=== PATIENT | female | born 1935 | race Caucasian/White ===

== ENCOUNTER 2020-10-16 18:12 | Emergency (ER) | payer MEDICAID, OTHER ==
[~2020-10-16] VITALS: Ht 162.6 cm; Wt 57.0 kg
[~2020-10-16 18:12] MED LIST: CALC-26 PO; GLIP5TAB3; HYDR25TA; MELO-104 PO; METF-416 PO; METF25CR; METO-539 PO; METO25TA6; OMEP20TA2; PROM25TA13; SIMV-43 PO
[2020-10-16] MEDS ORDERED: MAGNESIUM/ALUMINUM HYDROXIDE/SIMETHICONE 30ML UDC PO STA (18:34)
[2020-10-16] MEDS ORDERED: VISCOUS LIDOCAINE 2% 15 ML UDC PO STA (18:34)
[2020-10-16] MEDS ORDERED: ACETAMINOPHEN 325MG TABLET PO ONE (18:45)
[2020-10-16 19:11] LABS: CHLORIDE 103 mEq/L (98-107)
[2020-10-16 19:17] LABS: BASOPHILS % 0.7 % (0.0-2.0); EOSINOPHILS % 1.7 % (0.0-5.0); HEMATOCRIT. 34.4 % (36.0-48.0); HEMOGLOBIN. 11.6 g/dL (12.0-16.0); LYMPHOCYTES % 25.5 % (20.0-50.0); MEAN CORPUSCULAR HEMOGLOBIN 31.1 pg (28.0-32.0); MEAN PLATELET VOLUME 8.5 fl (7.4-10.4); MONOCYTES % 10.9 % (2.0-8.0); NEUTROPHILS % 61.2 % (40.0-76.0); PLATELET 104 x1000/uL (130-400); RED BLOOD CELL COUNT 3.74 mill/uL (4.2-5.4); RED CELL DISTRIBUTION WIDTH 13.4 % (11.6-14.6)
[2020-10-16 19:19] LABS: INR 1.1; PARTIAL THROMBOPLASTIN TIME 26.7 sec (23.4-31.0); PROTHROMBIN TIME 12.2 sec (9.6-11.0)
[2020-10-16 20:51] LABS: CLARITY URINE CLEAR (CLEAR); COLOR URINE YELLOW (YELLOW); KETONES URINE NEGATIVE (NEGATIVE); LEUKOCYTE ESTERASE URINE 2+ (NEGATIVE); NITRITE URINE NEGATIVE (NEGATIVE); OCCULT BLOOD URINE NEGATIVE (NEGATIVE); PH URINE 6.5 (4.5-8.0); PROTEIN URINE NEGATIVE (NEGATIVE); SPECIFIC GRAVITY URINE 1.012 (1.005-1.030)
[2020-10-16] MEDS ORDERED: CEPH250C2 MT (22:40)
[2020-10-16] MEDS ORDERED: TOPUD MT (22:40)
[2020-10-16] MEDS ORDERED: CEPHALEXIN 250MG CAPSULE PO ONE (22:45)
[2020-10-17 00:02] VITALS: BP 125/80
== END 2020-10-17 00:04 | disposition home or self-care (01) ==
LOC: ER 18:12
DX: N39.0 Urinary tract infection, site not specified (principal); R25.2 Cramp and spasm; I48.91 Unspecified atrial fibrillation; E11.9 Type 2 diabetes mellitus without complications; I11.9 Hypertensive heart disease without heart failure; Z95.0 Presence of cardiac pacemaker; Z90.49 Acquired absence of other specified parts of digestive tract
CPT/HCPCS: 36415; 71045; 80053; 81003; 83880; 84484; 85025; 93005; 93970; 99285

== ENCOUNTER 2021-02-03 12:25 | Emergency (ER) | payer MEDICAID ==
[~2021-02-03] VITALS: Ht 165.1 cm; Wt 77.0 kg
[~2021-02-03 12:25] MED LIST changes: +CEPH250C2 MT; +TOPUD MT
[2021-02-03] MEDS ORDERED: ACETAMINOPHEN 325MG TABLET PO ONE (14:15)
[2021-02-03] MEDS ORDERED: IBUPROFEN 400MG TABLET PO ONE (14:15)
[2021-02-03 15:18] LABS: BASOPHILS % 0.7 % (0.0-2.0); EOSINOPHILS % 0.9 % (0.0-5.0); HEMATOCRIT. 33.4 % (36.0-48.0); HEMOGLOBIN. 11.5 g/dL (12.0-16.0); LYMPHOCYTES % 21.1 % (20.0-50.0); MEAN CORPUSCULAR HEMOGLOBIN 31.2 pg (28.0-32.0); MEAN CORPUSCULAR VOLUME 90.7 fL (81.0-99.0); MEAN PLATELET VOLUME 8.3 fl (7.4-10.4); MONOCYTES % 11.3 % (2.0-8.0); PLATELET 104 x1000/uL (130-400); RED BLOOD CELL COUNT 3.68 mill/uL (4.2-5.4); RED CELL DISTRIBUTION WIDTH 13.7 % (11.6-14.6)
[2021-02-03 15:23] LABS: CHLORIDE 103 mEq/L (98-107)
[2021-02-03 16:35] LABS: CLARITY URINE CLEAR (CLEAR); COLOR URINE YELLOW (YELLOW); KETONES URINE NEGATIVE (NEGATIVE); LEUKOCYTE ESTERASE URINE NEGATIVE (NEGATIVE); NITRITE URINE NEGATIVE (NEGATIVE); OCCULT BLOOD URINE NEGATIVE (NEGATIVE); PH URINE 5.5 (4.5-8.0); PROTEIN URINE NEGATIVE (NEGATIVE); SPECIFIC GRAVITY URINE 1.011 (1.005-1.030)
[2021-02-03] MEDS ORDERED: IBUP-2029 MT (17:39)
[2021-02-03 18:04] VITALS: BP 132/51
== END 2021-02-03 18:06 | disposition home or self-care (01) ==
LOC: ER 12:25
DX: S20.211A Contusion of right front wall of thorax, initial encounter (principal); R07.89 Other chest pain; E11.9 Type 2 diabetes mellitus without complications; I10 Essential (primary) hypertension; W01.0XXA Fall on same level from slipping, tripping and stumbling without subsequent striking against object, initial encounter; Y93.9 Activity, unspecified; Y92.9 Unspecified place or not applicable
CPT/HCPCS: 36415; 71250; 80048; 81003; 84484; 85025; 93005; 99285

== ENCOUNTER 2021-06-13 11:44 | Inpatient (IN) | payer MEDICAID ==
[~2021-06-13] VITALS: Ht 165.1 cm; Wt 70.9 kg
[~2021-06-13 11:44] MED LIST changes: +IBUP-2029 MT
[2021-06-13] MEDS ORDERED: IPRATROPIUM BROMIDE (0.02%) 0.5MG/2.5ML NEB HHN STA (13:52)
[2021-06-13] MEDS ORDERED: ALBUTEROL (0.083%) 2.5MG/3ML NEB HHN STA (13:52)
[2021-06-13 14:22] LABS: HEMATOCRIT. 35.7 % (36.0-48.0); MEAN CORPUSCULAR HEMOGLOBIN 30.1 pg (28.0-32.0); MEAN CORPUSCULAR VOLUME 89.5 fL (81.0-99.0); MEAN PLATELET VOLUME 8.1 fl (7.4-10.4); PLATELET 129 x1000/uL (130-400); RED BLOOD CELL COUNT 3.99 mill/uL (4.2-5.4); RED CELL DISTRIBUTION WIDTH 13.5 % (11.6-14.6)
[2021-06-13 14:31] LABS: CHLORIDE 91 mEq/L (98-107)
[2021-06-13 14:34] LABS: PLATELET ESTIMATE SLIGHTLY DECREASED
[2021-06-13 14:40] LABS: CREATINE KINASE 74 IU/L (26-192); D-DIMER 1.28 mg/L FEU (<0.50)
[2021-06-13] MEDS ORDERED: AZITHROMYCIN 500MG/250ML 250 ML IV ONE (15:30)
[2021-06-13] MEDS ORDERED: ASPIRIN 81MG TABLET PO ONE (15:30)
[2021-06-13] MEDS ORDERED: CEFTRIAXONE 1 G PREMIX 50 ML IV ONE (15:30)
[2021-06-13 21:39] LABS: CLARITY URINE CLOUDY (CLEAR); COLOR URINE DARK YELLOW (YELLOW); KETONES URINE NEGATIVE (NEGATIVE); LEUKOCYTE ESTERASE URINE 1+ (NEGATIVE); NITRITE URINE POSITIVE (NEGATIVE); OCCULT BLOOD URINE 1+ (NEGATIVE); PH URINE 5.5 (4.5-8.0); PROTEIN URINE 2+ (NEGATIVE); SPECIFIC GRAVITY URINE 1.023 (1.005-1.030)
[2021-06-14] MEDS ORDERED: ACETAMINOPHEN 325MG TABLET PO PRN (08:15)
[2021-06-14] MEDS ORDERED: ONDANSETRON HCL 4MG/2ML INJ IV PRN (08:15)
[2021-06-14] MEDS ORDERED: CEFTRIAXONE 1 G PREMIX 50 ML IV SCH (08:15)
[2021-06-14] MEDS: CEFTRIAXONE 1,000 MG in DEXTROSE 5% WATER 50 ML IV SCH (08:42)
[2021-06-14] MEDS: FUROSEMIDE 40MG/4ML VIAL IVP SCH ×2 (08:43→18:39)
[2021-06-14 12:00] VITALS: BP 131/60
[2021-06-14 13:10] VITALS: BP 131/60
[2021-06-14 13:37] LABS: INR 1.3; PROTHROMBIN TIME 13.5 sec (9.6-11.0)
[2021-06-14 16:00] VITALS: BP 120/51
[2021-06-14] MEDS ORDERED: MAGNESIUM/ALUMINUM HYDROXIDE/SIMETHICONE 30ML UDC PO PRN (17:30)
[2021-06-14] MEDS ORDERED: IPRATROPIUM/ALBUTEROL 0.5-3(2.5)MG/3ML NEB HHN PRN (17:45)
[2021-06-14] MEDS ORDERED: DEXTROSE 50% WATER 50ML SYRINGE IV PRN (17:45)
[2021-06-14 20:00] VITALS: BP 107/36
[2021-06-14] MEDS: CARVEDILOL 3.125 MG TABLET PO SCH (21:00)
[2021-06-14] MEDS: ENOXAPARIN 80MG/0.8ML SYR SUBCUT SCH (21:35)
[2021-06-14] MEDS: BLOOD SUGAR DIAGNOSTIC STRIP TEST SCH (21:36)
[2021-06-14] MEDS: INSULIN LISPRO 100 UNITS/ML SUBCUT SCH (21:38)
[2021-06-15] VITALS: BP 108/48
[2021-06-15 04:00] VITALS: BP 107/50
[2021-06-15] MEDS: OMEPRAZOLE 20MG CAPSULE EXTENDED RELEASE PO SCH (06:23)
[2021-06-15] MEDS: FUROSEMIDE 40MG/4ML VIAL IVP SCH ×2 (06:23→17:00)
[2021-06-15] MEDS: BLOOD SUGAR DIAGNOSTIC STRIP TEST SCH ×4 (06:23→21:00)
[2021-06-15] MEDS: INSULIN LISPRO 100 UNITS/ML SUBCUT SCH ×4 (06:24→22:03)
[2021-06-15 07:05] LABS: CHLORIDE 93 mEq/L (98-107)
[2021-06-15 07:08] LABS: HEMATOCRIT. 29.5 % (36.0-48.0); HEMOGLOBIN. 10.5 g/dL (12.0-16.0); MEAN CORPUSCULAR HEMOGLOBIN 31.5 pg (28.0-32.0); MEAN CORPUSCULAR VOLUME 88.6 fL (81.0-99.0); MEAN PLATELET VOLUME 8.2 fl (7.4-10.4); PLATELET 130 x1000/uL (130-400); RED BLOOD CELL COUNT 3.33 mill/uL (4.2-5.4); RED CELL DISTRIBUTION WIDTH 13.7 % (11.6-14.6)
[2021-06-15 08:00] VITALS: BP 126/79
[2021-06-15] MEDS: CEFTRIAXONE 1,000 MG in DEXTROSE 5% WATER 50 ML IV SCH (08:25)
[2021-06-15] MEDS: ENOXAPARIN 80MG/0.8ML SYR SUBCUT SCH ×2 (08:25→22:02)
[2021-06-15] MEDS: CARVEDILOL 3.125 MG TABLET PO SCH ×2 (08:44→21:00)
[2021-06-15] MEDS ORDERED: POTASSIUM CHLORIDE INJ 40 MEQ in DEXT 5% WATER 250 ML IV ONE (10:00)
[2021-06-15 12:00] VITALS: BP 108/53
[2021-06-15] MEDS: KCL 20MEQ/100ML PREMIX 100 ML IV SCH ×2 (12:05→15:14)
[2021-06-15 13:39] LABS: PLATELET ESTIMATE NORMAL
[2021-06-15 16:00] VITALS: BP 96/37
[2021-06-15 20:00] VITALS: BP 124/52
[2021-06-16] VITALS: BP 110/45
[2021-06-16 04:00] VITALS: BP 117/49
[2021-06-16] MEDS: BLOOD SUGAR DIAGNOSTIC STRIP TEST SCH ×2 (06:07→11:33)
[2021-06-16] MEDS: OMEPRAZOLE 20MG CAPSULE EXTENDED RELEASE PO SCH (06:19)
[2021-06-16] MEDS: INSULIN LISPRO 100 UNITS/ML SUBCUT SCH ×2 (06:20→12:06)
[2021-06-16 07:52] LABS: HEMATOCRIT. 31.3 % (36.0-48.0); HEMOGLOBIN. 10.7 g/dL (12.0-16.0); MEAN CORPUSCULAR HEMOGLOBIN 31.1 pg (28.0-32.0); MEAN CORPUSCULAR VOLUME 90.4 fL (81.0-99.0); MEAN PLATELET VOLUME 8.1 fl (7.4-10.4); PLATELET 179 x1000/uL (130-400); RED BLOOD CELL COUNT 3.46 mill/uL (4.2-5.4); RED CELL DISTRIBUTION WIDTH 13.7 % (11.6-14.6)
[2021-06-16 08:00] VITALS: BP 127/58
[2021-06-16 08:02] LABS: CHLORIDE 91 mEq/L (98-107)
[2021-06-16] MEDS: FUROSEMIDE 40MG/4ML VIAL IVP SCH (08:54)
[2021-06-16] MEDS: CARVEDILOL 3.125 MG TABLET PO SCH (08:54)
[2021-06-16] MEDS: ENOXAPARIN 80MG/0.8ML SYR SUBCUT SCH (08:54)
[2021-06-16] MEDS: CEFTRIAXONE 1,000 MG in DEXTROSE 5% WATER 50 ML IV SCH (08:54)
[2021-06-16] MEDS ORDERED: LEVO500T89 MT (09:45)
[2021-06-16] MEDS ORDERED: FURO-151 MT (09:45)
[2021-06-16 10:21] VITALS: BP 127/58
[2021-06-16] MEDS ORDERED: POTASSIUM CHLORIDE 20MEQ TABLET SR PO NR (11:00)
[2021-06-16] MEDS ORDERED: APIX5TAB MT (11:33)
[2021-06-16 12:00] VITALS: BP 109/45
[2021-06-16 14:00] LABS: PLATELET ESTIMATE NORMAL
== END 2021-06-16 14:15 | disposition home or self-care (01) | DRG 720 ==
LOC: ER 12:16 → MICUSO 15:25 → 7EST 06-14 10:40
PROVIDERS: ADMIT Internal Medicine; ATTEND Internal Medicine
DX: A41.9 Sepsis, unspecified organism (principal); I50.31 Acute diastolic (congestive) heart failure; E43 Unspecified severe protein-calorie malnutrition; I27.20 Pulmonary hypertension, unspecified; E87.8 Other disorders of electrolyte and fluid balance, not elsewhere classified; I48.20 Chronic atrial fibrillation, unspecified; I08.0 Rheumatic disorders of both mitral and aortic valves; I27.81 Cor pulmonale (chronic); J06.9 Acute upper respiratory infection, unspecified; Z20.822 Contact with and (suspected) exposure to COVID-19; E87.1 Hypo-osmolality and hyponatremia; E11.9 Type 2 diabetes mellitus without complications; E66.9 Obesity, unspecified; I11.0 Hypertensive heart disease with heart failure; N39.0 Urinary tract infection, site not specified; J44.9 Chronic obstructive pulmonary disease, unspecified; Z82.49 Family history of ischemic heart disease and other diseases of the circulatory system; Z68.26 Body mass index [BMI] 26.0-26.9, adult; Z79.899 Other long term (current) drug therapy; Z95.0 Presence of cardiac pacemaker
CPT/HCPCS: 36415; 71045; 80048; 80053; 81003; 82550; 82728; 82962; 83036; 83605; 83615; 83880; 84145; 84484; 85025; 85379; 85384; 86140; 87426; 93005; 93306; 94640; 97161; 99291; C9803; J0456; J0696; J1650; J1815; J1940; J3480; J7060; U0003; U0005

== ENCOUNTER 2021-07-05 12:35 | Inpatient (IN) | payer MEDICAID ==
[~2021-07-05] VITALS: Ht 160 cm; Wt 68.6 kg
[~2021-07-05 12:35] MED LIST changes: +APIX5TAB MT; -CEPH250C2 MT; +FURO-151 MT; +LEVO500T89 MT
[2021-07-05 14:42] LABS: CLARITY URINE CLOUDY (CLEAR); COLOR URINE YELLOW (YELLOW); KETONES URINE NEGATIVE (NEGATIVE); LEUKOCYTE ESTERASE URINE TRACE (NEGATIVE); NITRITE URINE NEGATIVE (NEGATIVE); OCCULT BLOOD URINE NEGATIVE (NEGATIVE); PROTEIN URINE TRACE (NEGATIVE); SPECIFIC GRAVITY URINE 1.014 (1.005-1.030); UROBILINOGEN URINE 0.2 E.U./dL (0.2-1.0)
[2021-07-05 15:09] LABS: BASOPHILS % 0.5 % (0.0-2.0); EOSINOPHILS % 1.1 % (0.0-5.0); HEMATOCRIT. 32.3 % (36.0-48.0); LYMPHOCYTES % 15.3 % (20.0-50.0); MEAN CORPUSCULAR VOLUME 83.9 fL (81.0-99.0); MEAN PLATELET VOLUME 8.5 fl (7.4-10.4); MONOCYTES % 12.9 % (2.0-8.0); NEUTROPHILS % 70.2 % (40.0-76.0); PLATELET 97 x1000/uL (130-400); RED BLOOD CELL COUNT 3.85 mill/uL (4.2-5.4); RED CELL DISTRIBUTION WIDTH 13.4 % (11.6-14.6)
[2021-07-05 15:13] LABS: CHLORIDE 82 mEq/L (98-107)
[2021-07-05] MEDS ORDERED: POTASSIUM CHLORIDE 20MEQ TABLET SR PO ONE (18:00)
[2021-07-05] MEDS ORDERED: ONDANSETRON HCL 4MG/2ML INJ IV PRN ×2 (19:00→23:30)
[2021-07-05] MEDS ORDERED: DOCUSATE SODIUM 100MG CAPSULE PO PRN ×2 (19:00→23:30)
[2021-07-05] MEDS ORDERED: CLONIDINE 0.1MG TABLET PO PRN ×2 (19:00→23:30)
[2021-07-05] MEDS ORDERED: IPRATROPIUM/ALBUTEROL 0.5-3(2.5)MG/3ML NEB HHN PRN (19:00)
[2021-07-05] MEDS ORDERED: LORAZEPAM 0.5MG TABLET PO PRN (19:00)
[2021-07-05] MEDS ORDERED: HYDROCODONE/ACETAMINOPHEN 5/325MG TABLET PO PRN ×2 (19:00→23:30)
[2021-07-05] MEDS ORDERED: ACETAMINOPHEN 325MG TABLET PO PRN ×3 (19:00→23:30)
[2021-07-05] MEDS ORDERED: NALOXONE HCL 0.4MG/ML VIAL IV PRN (19:15)
[2021-07-05] MEDS ORDERED: MAGNESIUM/ALUMINUM HYDROXIDE/SIMETHICONE 30ML UDC PO PRN (23:30)
[2021-07-05] MEDS ORDERED: IPRATROPIUM/ALBUTEROL 0.5-3(2.5)MG/3ML NEB NEB PRN (23:30)
[2021-07-05] MEDS ORDERED: ENOXAPARIN 40MG/0.4ML SYR SUBCUT SCH (23:30)
[2021-07-05] MEDS ORDERED: GUAIFENESIN 200MG/10ML SUGAR FREE UDC PO PRN (23:30)
[2021-07-06 05:56] LABS: HEMATOCRIT. 32.2 % (36.0-48.0); HEMOGLOBIN. 11.6 g/dL (12.0-16.0); MEAN CORPUSCULAR HEMOGLOBIN 30.4 pg (28.0-32.0); MEAN CORPUSCULAR VOLUME 84.5 fL (81.0-99.0); MEAN PLATELET VOLUME 8.7 fl (7.4-10.4); PLATELET 99 x1000/uL (130-400); RED BLOOD CELL COUNT 3.81 mill/uL (4.2-5.4); RED CELL DISTRIBUTION WIDTH 13.5 % (11.6-14.6)
[2021-07-06 06:02] LABS: CHLORIDE 85 mEq/L (98-107)
[2021-07-06 06:12] LABS: LDL CHOLESTEROL 67 mg/dL (5-100)
[2021-07-06 06:13] LABS: CREATINE KINASE 73 IU/L (26-192); HDL CHOLESTEROL 29 mg/dL (40-59)
[2021-07-06] MEDS ORDERED: LEVOTHYROXINE SODIUM 75MCG TABLET PO NR (07:45)
[2021-07-06 07:52] LABS: SODIUM URINE RANDOM 26 mEq/L
[2021-07-06 07:58] LABS: *AMPHETAMINES SCREEN URINE NEGATIVE (NEGATIVE); *BARBITURATES SCREEN URINE NEGATIVE (NEGATIVE); *BENZODIAZEPINES SCREEN URINE NEGATIVE (NEGATIVE); *COCAINE SCREEN URINE NEGATIVE (NEGATIVE); METHADONE URINE SCREEN NEGATIVE (NEGATIVE); OPIATES URINE SCREEN PRESUMTIVE POSITIVE (NEGATIVE); PHENCYCLIDINE URINE SCREEN NEGATIVE (NEGATIVE)
[2021-07-06 07:59] LABS: CANNABINOID URINE SCREEN NEGATIVE (NEGATIVE)
[2021-07-06] MEDS: SODIUM CHLORIDE 0.9% 1,000 ML IV SCH ×2 (08:10→18:02)
[2021-07-06 08:12] LABS: ATYPICAL LYMPHOCYTES 1
[2021-07-06 08:13] LABS: PLATELET ESTIMATE SLIGHTLY DECREASED
[2021-07-06] MEDS ORDERED: ENOXAPARIN 30MG/0.3ML SYR SUBCUT SCH (11:30)
[2021-07-06] MEDS ORDERED: MELOXICAM 7.5MG TABLET PO PRN (12:30)
[2021-07-06 14:34] VITALS: BP 114/57
[2021-07-06 15:58] LABS: CHLORIDE 89 mEq/L (98-107)
[2021-07-06 16:00] VITALS: BP 95/50
[2021-07-06 16:07] LABS: CREATINE KINASE 30 IU/L (26-192)
[2021-07-06 16:08] LABS: CREATINE KINASE MB FRACTION 1.1 ng/mL (0.5-3.6)
[2021-07-06] MEDS ORDERED: PNEUMOCOCCAL 23-VAL P-SAC VAC 0.5 ML IM ONE (16:45)
[2021-07-06] MEDS ORDERED: INFLUENZA VACCINE 05/PF 0.5 ML SYRINGE IM ONE (16:45)
[2021-07-06] MEDS: CALCIUM 1250MG TABLET (500MG ELEMENTAL CALCIUM) PO SCH (18:01)
[2021-07-06] MEDS: APIXABAN 5 MG TABLET PO SCH (18:01)
[2021-07-06 20:00] VITALS: BP 121/52
[2021-07-06] MEDS ORDERED: POTASSIUM CHLORIDE 20MEQ TABLET SR PO NR (21:00)
[2021-07-06] MEDS: ATORVASTATIN CALCIUM 10MG TABLET PO SCH (21:23)
[2021-07-06] MEDS: FAMOTIDINE 20MG TABLET PO SCH (21:23)
[2021-07-07] VITALS: BP 119/58
[2021-07-07 04:00] VITALS: BP 114/65
[2021-07-07 08:00] VITALS: BP 98/49
[2021-07-07 08:11] LABS: BASOPHILS % 0.6 % (0.0-2.0); EOSINOPHILS % 2.8 % (0.0-5.0); HEMATOCRIT. 32.2 % (36.0-48.0); HEMOGLOBIN. 11.5 g/dL (12.0-16.0); LYMPHOCYTES % 18.7 % (20.0-50.0); MEAN CORPUSCULAR HEMOGLOBIN 30.5 pg (28.0-32.0); MEAN CORPUSCULAR VOLUME 85.5 fL (81.0-99.0); MEAN PLATELET VOLUME 9.1 fl (7.4-10.4); MONOCYTES % 14.6 % (2.0-8.0); NEUTROPHILS % 63.3 % (40.0-76.0); PLATELET 98 x1000/uL (130-400); RED BLOOD CELL COUNT 3.77 mill/uL (4.2-5.4); RED CELL DISTRIBUTION WIDTH 13.1 % (11.6-14.6)
[2021-07-07 08:31] LABS: CHLORIDE 94 mEq/L (98-107)
[2021-07-07 08:39] LABS: PHOSPHORUS 2.2 mg/dL (2.5-4.9)
[2021-07-07 08:41] LABS: T4 FREE 1.59 ng/dL (0.76-1.46)
[2021-07-07] MEDS: APIXABAN 5 MG TABLET PO SCH ×2 (08:54→16:30)
[2021-07-07] MEDS: CALCIUM 1250MG TABLET (500MG ELEMENTAL CALCIUM) PO SCH ×2 (08:54→16:30)
[2021-07-07 11:44] VITALS: BP 101/55
[2021-07-07] MEDS ORDERED: SODIUM PHOS,M-BASIC-D-BASIC 15 MM in DEXT 5% WATER 245 ML IV SCH (12:00)
[2021-07-07 16:08] VITALS: BP 101/58
[2021-07-07 20:00] VITALS: BP 135/90
[2021-07-07] MEDS: ATORVASTATIN CALCIUM 10MG TABLET PO SCH (21:15)
[2021-07-07] MEDS: FAMOTIDINE 20MG TABLET PO SCH (21:15)
[2021-07-08] VITALS: BP 97/56
[2021-07-08 04:00] VITALS: BP 114/62
[2021-07-08 08:00] VITALS: BP 126/66
[2021-07-08] MEDS: CALCIUM 1250MG TABLET (500MG ELEMENTAL CALCIUM) PO SCH ×2 (08:28→16:35)
[2021-07-08] MEDS: APIXABAN 5 MG TABLET PO SCH ×2 (08:28→16:35)
[2021-07-08] MEDS: SODIUM CHLORIDE 0.9% 1,000 ML IV SCH ×2 (08:29→23:38)
[2021-07-08 11:08] LABS: BASOPHILS % 0.4 % (0.0-2.0); EOSINOPHILS % 1.3 % (0.0-5.0); HEMATOCRIT. 28.2 % (36.0-48.0); HEMOGLOBIN. 9.9 g/dL (12.0-16.0); LYMPHOCYTES % 11.5 % (20.0-50.0); MEAN CORPUSCULAR HEMOGLOBIN 30.3 pg (28.0-32.0); MEAN CORPUSCULAR VOLUME 86.9 fL (81.0-99.0); MEAN PLATELET VOLUME 8.7 fl (7.4-10.4); MONOCYTES % 12.1 % (2.0-8.0); NEUTROPHILS % 74.7 % (40.0-76.0); PLATELET 86 x1000/uL (130-400); RED BLOOD CELL COUNT 3.25 mill/uL (4.2-5.4); RED CELL DISTRIBUTION WIDTH 13.6 % (11.6-14.6)
[2021-07-08 11:27] LABS: CHLORIDE 105 mEq/L (98-107)
[2021-07-08 11:37] LABS: PHOSPHORUS 1.8 mg/dL (2.5-4.9)
[2021-07-08 12:00] VITALS: BP 124/62
[2021-07-08] MEDS ORDERED: POTASSIUM CHLORIDE 20MEQ TABLET SR PO NR (13:15)
[2021-07-08] MEDS ORDERED: MAGNESIUM 1 G PREMIX 100 ML IV NR (15:30)
[2021-07-08 16:00] VITALS: BP 102/47
[2021-07-08] MEDS ORDERED: POTASSIUM PHOS,M-BASIC-D-BASIC 15 MMOL in DEXT 5% WATER 245 ML IV NR (17:30)
[2021-07-08 20:00] VITALS: BP 123/60
[2021-07-08] MEDS: ATORVASTATIN CALCIUM 10MG TABLET PO SCH (21:17)
[2021-07-08] MEDS: FAMOTIDINE 20MG TABLET PO SCH (21:17)
[2021-07-09] VITALS: BP 108/52
[2021-07-09 04:00] VITALS: BP 121/65
[2021-07-09 07:24] LABS: CHLORIDE 104 mEq/L (98-107)
[2021-07-09 07:37] LABS: PHOSPHORUS 2.8 mg/dL (2.5-4.9)
[2021-07-09 08:00] VITALS: BP 109/62
[2021-07-09 08:10] LABS: BASOPHILS % 0.6 % (0.0-2.0); EOSINOPHILS % 3.5 % (0.0-5.0); HEMATOCRIT. 30.9 % (36.0-48.0); LYMPHOCYTES % 22.6 % (20.0-50.0); MEAN CORPUSCULAR HEMOGLOBIN 30.9 pg (28.0-32.0); MEAN CORPUSCULAR VOLUME 86.7 fL (81.0-99.0); MEAN PLATELET VOLUME 8.7 fl (7.4-10.4); MONOCYTES % 14.2 % (2.0-8.0); NEUTROPHILS % 59.1 % (40.0-76.0); PLATELET 95 x1000/uL (130-400); RED BLOOD CELL COUNT 3.56 mill/uL (4.2-5.4); RED CELL DISTRIBUTION WIDTH 13.4 % (11.6-14.6)
[2021-07-09] MEDS: APIXABAN 5 MG TABLET PO SCH (09:09)
[2021-07-09] MEDS: CALCIUM 1250MG TABLET (500MG ELEMENTAL CALCIUM) PO SCH (09:09)
[2021-07-09 12:00] VITALS: BP 123/55
[2021-07-09 13:57] VITALS: BP 123/55
== END 2021-07-09 17:55 | disposition home health service (06) | DRG 48 ==
LOC: ER 12:35 → 5WST 18:31 → ENRESERV 22:22 → CANRESERV 22:22 → ENRESERV 07-06 10:02
PROVIDERS: ADMIT Internal Medicine; ATTEND Internal Medicine
DX: G90.8 Other disorders of autonomic nervous system (principal); D69.6 Thrombocytopenia, unspecified; E44.0 Moderate protein-calorie malnutrition; I27.21 Secondary pulmonary arterial hypertension; E87.1 Hypo-osmolality and hyponatremia; E83.39 Other disorders of phosphorus metabolism; I95.9 Hypotension, unspecified; I11.0 Hypertensive heart disease with heart failure; I50.9 Heart failure, unspecified; I48.91 Unspecified atrial fibrillation; D64.9 Anemia, unspecified; E03.9 Hypothyroidism, unspecified; E11.9 Type 2 diabetes mellitus without complications; E78.5 Hyperlipidemia, unspecified; I08.3 Combined rheumatic disorders of mitral, aortic and tricuspid valves; E86.1 Hypovolemia; Z20.822 Contact with and (suspected) exposure to COVID-19; R74.01 Elevation of levels of liver transaminase levels; E87.6 Hypokalemia; E83.42 Hypomagnesemia; Z79.84 Long term (current) use of oral hypoglycemic drugs; Z82.49 Family history of ischemic heart disease and other diseases of the circulatory system; Z83.3 Family history of diabetes mellitus; Z95.0 Presence of cardiac pacemaker; Z68.26 Body mass index [BMI] 26.0-26.9, adult; Z79.2 Long term (current) use of antibiotics; Z79.01 Long term (current) use of anticoagulants; Z79.899 Other long term (current) drug therapy; Z87.440 Personal history of urinary (tract) infections
CPT/HCPCS: 36415; 80048; 80053; 80061; 80076; 80305; 81003; 82533; 82550; 82553; 82962; 83036; 83735; 83880; 83930; 83935; 84100; 84300; 84439; 84443; 84481; 84484; 85025; 87426; 90686; 90732; 93005; 93880; 93970; 97162; 99285; J1650; J2405; J3475; J3490; J7060